=== PATIENT | male | born 1980 | race Caucasian/White ===

== ENCOUNTER 2016-05-04 00:50 | Emergency (ER) | payer MEDICAID, OTHER ==
[~2016-05-04] VITALS: Ht 185.4 cm; Wt 99.1 kg
[2016-05-04 00:57] VITALS: BP 142/88
--- NOTE | 2016-05-04 01:13 | NUR ---
AMBULATED TO ER OF1
--- NOTE | 2016-05-04 01:35 | NUR ---
Patient being evaluated by physician.
--- NOTE | 2016-05-04 01:42 | NUR ---
36Y/M PATIENT PRESENTS TO ED WITH C/O LT. LEG LACERATION X 1 HRS . PT STATES HE GOT COUGH WITH SOMETHING WHILE WALKING TO IN THE PARK, LT. LEG LACERATION. DENIES N/V/D; SKIN IS PINK/WARM/DRY, LT. LEG LACERATION, NO CATIVE BLEEDING; AAOX4 WITH EVEN AND STEADY GAIT; LUNGS CLEAR BL; HR EVEN AND REGULAR; PT DENIES ANY FEVER, CP, SOB, OR COUGH AT THIS TIME; PATIENT STATES PAIN OF 4/10 AT THIS TIME; VSS; PATIENT POSITIONED FOR COMFORT; HOB ELEVATED; BEDRAILS UP X2; BED DOWN. ER MD MADE AWARE OF PT STATUS.
[2016-05-04] MEDS ORDERED: IBUPROFEN 600 MG TAB PO ONE (01:50)
--- NOTE | 2016-05-04 01:56 | NUR ---
CLEANSE LACERATION WOUND WITH NS, APPLIED BACITRACIN OINTMENT, COVER WITH DRY DRESSING.
[2016-05-04] MEDS ORDERED: BACITRACIN OINT 500 UNITS/GM PKT TP ONE (01:58)
[2016-05-04 02:08] VITALS: BP 135/85
--- NOTE | 2016-05-04 02:08 | NUR ---
Patient discharged with v/s stable. Written and verbal after care instructions given and explained. Patient alert, oriented and verbalized understanding of instructions. Ambulatory with steady gait. All questions addressed prior to discharge. ID band removed. Patient advised to follow up with PMD. Rx of MOTRIN 600 MG, KEFLEX 500 MG given. Patient educated on indication of medication including possible reaction and side effects. Opportunity to ask questions provided and answered.
== END 2016-05-04 02:08 | disposition home or self-care (01) ==
LOC: MED 00:50
DX: S80.812A Abrasion, left lower leg, initial encounter (principal); W22.8XXA Striking against or struck by other objects, initial encounter; Y93.02 Activity, running; Y92.89 Other specified places as the place of occurrence of the external cause; Y99.8 Other external cause status

== ENCOUNTER 2016-06-04 05:45 | Emergency (ER) | payer OTHER ==
[~2016-06-04] VITALS: Ht 185.4 cm; Wt 99.8 kg
--- NOTE | 2016-06-04 05:45 | NUR ---
PT [facility] BLS. TAKEN TO BED 7
--- NOTE | 2016-06-04 05:45 | NUR ---
Dr. Taveras evaluating patient at bedside.
[2016-06-04 05:46] VITALS: BP 137/87
[2016-06-04] MEDS ORDERED: MORPHINE SULFATE 5 MG/ML VIAL IVP ONE ×2 (05:50→06:50)
[2016-06-04] MEDS ORDERED: MORPHINE SULFATE 10 MG/ML SYR ONE (06:01)
--- NOTE | 2016-06-04 06:09 | NUR ---
X-Ray at bedside.
--- NOTE | 2016-06-04 06:28 | NUR ---
PT RESTING IN BED, VSS. VERBALIZES PAIN HAS IMPROVED AFTER PAIN MED ADMINISTRATION.
--- NOTE | 2016-06-04 06:50 | NUR ---
PT TAKEN TO CT
--- NOTE | 2016-06-04 07:07 | NUR ---
Pt report given to CLARITA WRIGHT. Transfer of care at this time.PT IN CT SCAN.
--- NOTE | 2016-06-04 07:09 | NUR ---
PT RETURN FROM CT
--- NOTE | 2016-06-04 07:10 | NUR ---
REPORT RECIEVED FROM CLARITA CARTER.
--- NOTE | 2016-06-04 07:21 | NUR ---
PT IS AAOX4.PT IS IN PAIN.MORPHINE 5 MG NOT AVAILABLE AT [facility].CALLED PHARMACY.THEY SAID MORPHINE 5 MG IS NOT AVAILABLE.THEY WILL PUT 10 MG AND INSTRUCTED TO WASTE THE 5 MG.POSITION TO COMFORT ELEVATED FOOT.PRIOVIDED BLANKET.WILL CONTINUE TO MONITOR PT.
[2016-06-04] MEDS: MORPHINE SULFATE 10 MG/ML SYR IVP SCH ×2 (07:37→08:00)
--- NOTE | 2016-06-04 07:42 | NUR ---
DR HAYES AT BEDSIDE
[2016-06-04] MEDS ORDERED: KETOROLAC 30 MG/ML VIAL IVP ONE (07:45)
[2016-06-04] MEDS ORDERED: MORPHINE SULFATE 4 MG/ML SYR IVP ONE (07:45)
[2016-06-04] MEDS ORDERED: KETOROLAC 30 MG/ML VIAL ONE (07:57)
--- NOTE | 2016-06-04 08:08 | NUR ---
SPLINT APPLIED BY JESSENIA LOPEZ.NO ACUTE DISTRESS NOTED AT THIS TIME.WILL CONTINUE TO MONITOR PT.
--- NOTE | 2016-06-04 08:27 | NUR ---
Patient discharged with v/s stable. Written and verbal after care instructions given and explained. Patient alert, oriented and verbalized understanding of instructions. Ambulatory with steady gait. All questions addressed prior to discharge. ID band removed. Patient advised to follow up with PMD. Rx of NAPROSYN AND NORCO given. Patient educated on indication of medication including possible reaction and side effects. Opportunity to ask questions provided and answered.ADVISED PT TO ELEVATE FOOT AND APPLY ICE ON AFFECTED FOOT TO RECUCE SWELLING.
[2016-06-04 08:28] VITALS: BP 119/52
== END 2016-06-04 08:27 | disposition home or self-care (01) ==
LOC: MED 05:45
DX: S93.601A Unspecified sprain of right foot, initial encounter (principal); V27.4XXA Motorcycle driver injured in collision with fixed or stationary object in traffic accident, initial encounter; Y93.89 Activity, other specified; Y92.411 Interstate highway as the place of occurrence of the external cause; Y99.8 Other external cause status
CPT/HCPCS: 29515; 73610; 73630; 73700; 96374; 96375; 99284; J1885; J2270; Q0092

== ENCOUNTER 2017-01-30 07:23 | Emergency (ER) | payer OTHER ==
[~2017-01-30] VITALS: Ht 185.4 cm; Wt 99.8 kg
--- NOTE | 2017-01-30 07:23 | NUR ---
Patient was BIBA and taken to bed 08 via gurney per EMS.
[2017-01-30 07:25] VITALS: BP 122/80
--- NOTE | 2017-01-30 07:25 | NUR ---
PT BIBA FOR EVALUATION OF LBP X3 DAYS S/P LIFTING BOXES. DENIES N/V/D; SKIN IS PINK/WARM/DRY; AAOX4 WITH EVEN AND STEADY GAIT; LUNGS CLEAR BL; HR EVEN AND REGULAR; PT DENIES ANY FEVER, CP, SOB, OR COUGH AT THIS TIME; PATIENT STATES PAIN OF 10/10 AT THIS TIME; VSS; PATIENT POSITIONED FOR COMFORT; HOB ELEVATED; BEDRAILS UP X2; BED DOWN. ER MD MADE AWARE OF PT STATUS.
--- NOTE | 2017-01-30 07:36 | NUR ---
DR HEIN EVALUATING AAO PT AT BEDSIDE
[2017-01-30] MEDS ORDERED: KETOROLAC 60 MG/2 ML VIAL IM ONE (07:40)
[2017-01-30] MEDS ORDERED: DIAZEPAM PFS 10 MG/2 ML SYR IM ONE (07:40)
--- NOTE | 2017-01-30 07:46 | NUR ---
5MG/1ML VALIUM WASTED
[2017-01-30 08:20] VITALS: BP 123/73
--- NOTE | 2017-01-30 08:20 | NUR ---
Patient discharged with v/s stable. Written and verbal after care instructions given and explained. Patient alert, oriented and verbalized understanding of instructions. Wheel Chair Assisted to the lobby, awaiting uber. All questions addressed prior to discharge. ID band removed. Patient advised to follow up with PMD. Rx of norco, motrin, valium given. Patient educated on indication of medication including possible reaction and side effects. Opportunity to ask questions provided and answered.
== END 2017-01-30 08:20 | disposition home or self-care (01) ==
LOC: MED 07:23
DX: M54.5 Low back pain (principal); X50.0XXA Overexertion from strenuous movement or load, initial encounter; Y93.89 Activity, other specified; Y92.89 Other specified places as the place of occurrence of the external cause; Y99.8 Other external cause status
CPT/HCPCS: 96372; 99284; J1885; J3360

== ENCOUNTER 2017-02-04 01:45 | Emergency (ER) | payer OTHER ==
[~2017-02-04] VITALS: Ht 185.4 cm; Wt 99.8 kg
[2017-02-04 01:55] VITALS: BP 138/57
[2017-02-04] MEDS ORDERED: KETOROLAC 30 MG/ML VIAL IM ONE (02:15)
[2017-02-04 02:36] VITALS: BP 138/57
== END 2017-02-04 02:36 | disposition home or self-care (01) ==
LOC: MED 01:45
DX: K64.9 Unspecified hemorrhoids (principal)
CPT/HCPCS: 96372; 99283; J1885

== ENCOUNTER 2019-02-14 05:07 | Emergency (ER) | payer MEDICAID, OTHER ==
[~2019-02-14] VITALS: Ht 185.4 cm; Wt 102.5 kg
[2019-02-14 05:13] VITALS: BP 117/73
--- NOTE | 2019-02-14 05:19 | NUR ---
PT TAKEN TO BED 6
--- NOTE | 2019-02-14 05:32 | NUR ---
39 Y/O MALE BIB SELF WITH C/O SUBSTERNAL CHEST PAIN UPON INHILATION AND EXPIRATION X6 HRS. PT STATES PAIN STARTED AFTER EATING "A LOT OF FOOD AT A LIBERTARIAN" AND DRINKING 2 ALCOHOLIC BEVERAGES. 10/10 SHARP INTERMITTENT PAIN. PT STATES PREVIOUS COCAINE, METH, MARIJUANA, AND MULTIPLE PILL USE IN THE PAST. STATES HE QUIT ABRUPTLY LAST FRIDAY. RR EVEN AND UNLABORED. PT RESTING IN BED CALM AND PLEASANT. BED LOCKED AND IN LOW POSITON. VSS. MEDHX:DENIES ALLERGIES: DENIES
--- NOTE | 2019-02-14 05:45 | NUR ---
Dr. Hoffman examining patient.
[2019-02-14] MEDS ORDERED: KETOROLAC 30 MG/ML VIAL IVP ONE (05:55)
[2019-02-14] MEDS ORDERED: NACL 0.9% 1,000 ML IV ONE (05:55)
[2019-02-14] MEDS ORDERED: ASPIRIN 81 MG TAB.CHEW PO ONE (05:55)
[2019-02-14 06:13] LABS: ANION GAP 13.9 (8-16); CARBON DIOXIDE 25.6 mmol/L (21-32); CREATININE 1.1 mg/dL (0.7-1.3); POTASSIUM 3.5 mmol/L (3.5-5.1)
[2019-02-14 06:19] LABS: ALBUMIN 3.3 g/dL (3.4-5.0); TOTAL BILIRUBIN 0.2 mg/dL (0.0-1.0)
[2019-02-14 06:30] LABS: BASOPHILS # (AUTO) 0.1 K/uL (0.00-0.22); BASOPHILS % (AUTO) 1.4 % (0.0-2.0); EOSINOPHILS # (AUTO) 0.3 K/uL (0-0.4); EOSINOPHILS % (AUTO) 3.7 % (0.0-4.0); HEMATOCRIT 37.2 % (36-52); HEMOGLOBIN 12.8 g/dL (12.0-18.0); LYMPHOCYTES # (AUTO) 3.8 K/uL (2.0-11.5); LYMPHOCYTES % (AUTO) 41.6 % (20.5-51.1); MEAN CORPUSCULAR HEMOGLOBIN 30 pg (27-31); MEAN CORPUSCULAR HGB CONC 35 g/dL (33-37); MEAN CORPUSCULAR VOLUME 86.6 fL (80-94); MONOCYTES # (AUTO) 0.6 K/uL (0.8-1.0); MONOCYTES % (AUTO) 6.4 % (1.7-9.3); NEUTROPHILS # (AUTO) 4.3 K/uL (1.8-7.7); NEUTROPHILS % (AUTO) 46.9 % (42.2-75.2); PLATELET COUNT (AUTO) 294 K/uL (140-450); RED CELL DISTRIBUTION WIDTH 13.3 % (11.6-13.7); WHITE BLOOD COUNT (AUTO) 9.1 K/uL (4.8-10.8)
--- NOTE | 2019-02-14 06:39 | NUR ---
PT STATES NO RELIEF OF PAIN AT THIS TIME. DR SIMMONS MADE AWARE
[2019-02-14] MEDS ORDERED: PANTOPRAZOLE 40 MG INJ VIAL IVP ONE (06:40)
[2019-02-14 06:57] VITALS: BP 117/73
--- NOTE | 2019-02-14 06:58 | NUR ---
Patient discharged with v/s stable. Written and verbal after care instructions given and explained. Patient alert, oriented and verbalized understanding of instructions. Ambulatory with steady gait. All questions addressed prior to discharge. ID band removed. Patient advised to follow up with PMD. Rx of PROTONIX, MOTRIN, MIRALAX, AND SENOKOT given. Patient educated on indication of medication including possible reaction and side effects. Opportunity to ask questions provided and answered.
--- NOTE | 2019-02-14 06:58 | NUR ---
PT STATES RELIEF OF PAIN AT THIS TIME.
== END 2019-02-14 06:58 | disposition home or self-care (01) ==
LOC: MED 05:07
DX: R07.1 Chest pain on breathing (principal); K29.70 Gastritis, unspecified, without bleeding; K59.00 Constipation, unspecified; Z87.891 Personal history of nicotine dependence
CPT/HCPCS: 36415; 71045; 80053; 84484; 85025; 93005; 96361; 96374; 96375; 99284; C9113; J1885; Q0092; J7030